=== PATIENT | male | born 1985 | race Caucasian/White ===

== ENCOUNTER 2020-05-08 07:46 | Outpatient (CLI) | payer BC, SELFPAY ==
--- NOTE | 2020-05-08 07:52 | MR_ITS ---
WS: [id number] MRI CERVICAL SPINE NONCONTRAST TECHNIQUE: Sagittal T1, T2 and STIR imaging. Axial T2, gradient, and fiesta imaging. CLINICAL INFORMATION: NECK PAIN COMPARISON: None. FINDINGS: Slight exaggeration the normal cervical lordosis. Disc bulging worse at C5-C6 with moderate central c anal stenosis and slight contact of the cervical cord. C2-C3: Normal. C3-C4: No significant disc bulging. Mild facet arthropathy. Mild left periarticular edema. Spinal can al and foramen are patent. C4-C5: Mild disc bulging with mild facet arthropathy. Spinal canal and foramen are patent. C5-C6: Disc osteophyte complex with broad-based central protrusion. Moderate central canal stenosis w ith slight contact of the cervical cord. Severe left and moderate right bony foraminal narrowing. Mil d to moderate facet arthropathy. C6-C7: Moderate left and no significant right foraminal narrowing. Spinal canal is patent. Left eccen tric disc osteophytic ridging. C7-T1: Normal. Visualized brain stem structures: Normal. Prevertebral soft tissues: Normal. Prominent submental lymph node likely reactive. MR/MR cervical spin wo con* [id number] IMPRESSION: 1. Slight exaggeration normal cervical lordosis. Cord signal is normal. 2. Disc osteophyte protrusion C5-C6 with contact of the cervical cord and mode rate central canal stenosis. Moderate to severe left and moderate right bony fo raminal narrowing at this level. 3. Facet effusion and periarticular edema at left C2-3 consistent with synovit is or degenerative change. Recommend correlation for left upper neck pain. 4. Moderate left C6-C7 bony foraminal narrowing.
--- NOTE | 2020-05-08 07:52 | MR_ITS ---
WS: [id number] MRI LEFT SHOULDER NONCONTRAST TECHNIQUE: Sagittal T2, coronal T1, T2 and proton density imaging. Axial gradient PDE imaging. CLINICAL INFORMATION: PAIN OF LEFT SHOULDER COMPARISON: None. FINDINGS: Mild hypertrophic changes AC joint. No significant subacromial/subdeltoid fluid. Mild degenerative ed rj at the AC joint. Tiny insertional tear at the distal supraspinatus. Supraspinatus is otherwise in tact. Normal infraspinatus. Normal teres minor. Normal subscapularis. Distal subscapularis is normal. Normal biceps tendon in the bicipital groove. Normal biceps labral an chor. Normal middle glenohumeral ligament. Degenerative fraying glenoid labrum. Prominent lymph nodes partially visualized in the axilla measuring up to 1.4 cm nonspecific but likely reactive in a patie nt this age. MR/MR shoulder LT wo con* [id number] IMPRESSION: 1. Tiny insertional tear involving the distal supraspinatus which is otherwise intact. 2. Otherwise normal rotator cuff. 3. Normal biceps tendon in the bicipital groove. 4. Glenoid labrum appears grossly intact. 5. Normal biceps labral anchor. 6. Intra-articular biceps tendon is normal. 7. Prominent lymph nodes in the axilla nonspecific but likely reactive in a pa tient this age.
== END 2020-05-08 07:47 | disposition home or self-care (01) ==
LOC: RADSHAW 07:51
PROVIDERS: PCP Nurse Practitioner Family; Visit Provider Nurse Practitioner Family
DX: M25.512 Pain in left shoulder (principal); M54.2 Cervicalgia; M75.102 Unspecified rotator cuff tear or rupture of left shoulder, not specified as traumatic; M25.78 Osteophyte, vertebrae
CPT/HCPCS: 72141; 73221